=== PATIENT | female | born 1980 ===

== ENCOUNTER 2018-09-26 20:00 | Inpatient (IN) | payer BC ==
[2018-09-27] MEDS ORDERED: Butorphanol Tartrate 1 MG/ML VIAL SLOW IVP PRN (03:36)
[2018-09-27] MEDS ORDERED: NS w/ Oxytocin 10 units 500 ML IV SCH (03:36)
[2018-09-27] MEDS ORDERED: HYDROcodone/Acetaminophen 5/325 mg Tablet PO PRN ×2 (03:36→18:40)
[2018-09-27] MEDS ORDERED: Misoprostol 200 MCG TAB PR PRN (03:36)
[2018-09-27] MEDS ORDERED: Ibuprofen 800 MG TAB PO PRN (03:36)
[2018-09-27] MEDS ORDERED: Lidocaine 1% (PF) 30 ML VIAL SC PRN (03:36)
[2018-09-27] MEDS ORDERED: Promethazine HCl 25 MG/ML VIAL IM PRN ×2 (03:36→08:34)
[2018-09-27] MEDS ORDERED: Zolpidem Tartrate 5 MG TAB PO PRN (03:36)
[2018-09-27] MEDS ORDERED: Diphenoxylate HCl/Atropine Tablet PO PRN (03:36)
[2018-09-27] MEDS ORDERED: Acetaminophen 500 MG TAB PO PRN (03:36)
[2018-09-27] MEDS ORDERED: Methylergonovine 0.2 MG/ML VIAL IM PRN (03:36)
[2018-09-27] MEDS ORDERED: Ondansetron PF 4 MG/2 ML Vial IVP PRN ×3 (03:36→18:40)
[2018-09-27] MEDS ORDERED: Carboprost 250 MCG/ML AMP IM PRN (03:36)
[2018-09-27 03:42] VITALS: BMI 33.7
[2018-09-27] MEDS: Misoprostol 100 MCG TAB VAG SCH ×4 (04:12→18:13)
[2018-09-27] MEDS: Lactated Ringer's 1,000 ML IV SCH ×2 (04:13→15:55)
[2018-09-27 04:16] LABS: Hemoglobin 13.4 g/dL (12.0-16.0); Mean Corpuscular HGB CONC 33.1 g/dL (32.0-36.0); Mean Corpuscular Hemoglobin 26.9 pg (27.0-31.0); Mean Corpuscular Volume 81.4 fL (78.0-98.0); Mean Platelet Volume 10.2 fL (7.4-10.4); Platelet Count 207 thou/uL (130-400); RBC Distribution Width 14.9 % (11.5-14.5); Red Blood Cell (RBC) Count 4.96 mill/uL (4.20-5.40); White Blood Cell (WBC) Count 8.7 thou/uL (4.8-10.8)
[2018-09-27 04:23] LABS: Glucose 72 mg/dL (70-105)
[2018-09-27 04:48] LABS: Hep B Surf Ag Non-Reactive S/CO (NonReactive)
[2018-09-27 05:23] LABS: Syphilis Antibody Nonreactive (Nonreactive); Syphilis Antibody Index 0.03 S/CO (<1.00 Non-Reactive)
[2018-09-27] MEDS ORDERED: Fentanyl 4 mcg/Bup 0.1% Cadd 100 ML ONE ×2 (07:54→14:52)
--- NOTE | 2018-09-27 08:03 | PDOC.LDHP ---
Labor and Delivery H&P Allergies/Adverse Reactions: Allergies Allergy/AdvReac Type Severity Reaction Status Date / Time No Known Allergies Allergy Verified 09/27/18 03:37
[2018-09-27] MEDS ORDERED: Naloxone HCl 0.4 mg/ml Vial IVP PRN ×2 (08:34)
[2018-09-27] MEDS ORDERED: diphenhydrAMINE 50 MG/ML VIAL IVP PRN (08:34)
[2018-09-27] MEDS ORDERED: ePHEDrine/0.9% NaCl/PF SYRINGE 50 mg/10 ml SLOW IVP PRN (08:34)
[2018-09-27] MEDS ORDERED: Eucerin (Mineral Oil/Petrolatum,White) 30 gm Jar TOP PRN (08:34)
[2018-09-27] MEDS ORDERED: Acetaminophen 325 MG TAB PO PRN (08:34)
[2018-09-27] MEDS ORDERED: Lactated Ringer's 500 ML IV PRN (08:34)
[2018-09-27] MEDS ORDERED: Fentanyl 4 mcg/Bupivacaine 0.1% Cassette 100 ML EPIDURAL SCH (08:45)
[2018-09-27] MEDS ORDERED: Communication Order-Pharmacy FS SCH (08:45)
[2018-09-27] MEDS: NS / Oxytocin 40 units/1000ml 1,000 ML IV PRN ×2 (16:36→18:13)
--- NOTE | 2018-09-27 16:42 | PDOC.OPDEL ---
OB Operative/Delivery Note Delivery Dr/Surgeon: Fernanda Assist: n/a Pre-Delivery Diagnosis: medically indicated induction Procedure/Post Delivery Dx: spontaneous vaginal delivery Weeks gestation: 38 Anesthesia: epidural - Findings A Sex: male - 1 min: 9 - 5 min: 9 - Additional Findings/Plan Placenta delivered: spontaneous Repaired Obstetrical Laceration: 3rd degree (repaired end to end with 2-0 vicryl , second degree repaired with 2-0 vicryl in usual fashion, excellent hemostasis , dangling tissue trimmed on right labia, hemostatic with 2-0 vicryl single stitch) Estimated blood loss: 400, qbl pending Compilations/Other Findings: NC x 1 reduced, no dystocia Post delivery plan: routine recovery
[2018-09-27] MEDS ORDERED: Bupivacaine 0.25% HCL 30 ML VIAL ONE (18:00)
[2018-09-27] MEDS ORDERED: Milk Of Magnesia 30 ML UDCUP PO PRN (18:40)
[2018-09-27] MEDS ORDERED: Preparation H Ointment 28 GM TUBE PR PRN (18:40)
[2018-09-27] MEDS ORDERED: NS / Oxytocin 40 units/1000ml 1,000 ML IV SCH (18:40)
[2018-09-27] MEDS ORDERED: Benzocaine/Menthol 20-0.5% 60 ML CAN TOP PRN (18:40)
[2018-09-27] MEDS ORDERED: diphenhydrAMINE 25 MG CAP PO PRN (18:40)
[2018-09-27] MEDS ORDERED: Bisacodyl 10 MG SUPP PR PRN (18:40)
[2018-09-27] MEDS: Docusate Calcium (SURFAK) 240 MG CAP PO SCH (21:52)
[2018-09-27] MEDS: Ibuprofen 800 MG TAB PO SCH (21:55)
[2018-09-28] MEDS: HYDROcodone/Acetaminophen 5/325 mg Tablet PO PRN ×2 (03:35→23:41)
[2018-09-28] MEDS: Ibuprofen 800 MG TAB PO SCH ×3 (05:37→21:36)
[2018-09-28] MEDS ORDERED: Adacel (T-DAP) 0.5 ML VIAL IM ONE (09:00)
[2018-09-28] MEDS: Ferrous Sulfate 325 MG TAB PO SCH ×2 (09:38→16:45)
[2018-09-28] MEDS: Docusate Calcium (SURFAK) 240 MG CAP PO SCH ×2 (09:40→21:35)
[2018-09-28] MEDS: Prenatal Vitamin 1 TAB PO SCH (09:40)
--- NOTE | 2018-09-28 12:28 | PDOC.PP ---
Post Progress Note Post Day #: 1 PO intake tolerated: yes Flatus: yes Ambulation: yes Vital Signs (12 hours) Temp Pulse Resp BP Pulse Ox 09/28/18 11:45 97.9 F 20 112/77 09/28/18 08:50 97 09/28/18 08:05 98 09/28/18 08:02 97.7 F 102 H 20 105/63 98 09/28/18 03:52 97.8 F 110 H 18 117/84 09/28/18 01:12 98.3 F 108 H 18 125/97 H Weight Weight 173 lb - Physical Examination General: NAD Respiratory: non-labored breathing Abdominal: no distention, appropriately TTP Fundus firm & at: umb Skin: no rash Neurological: no gross focal deficits Psychiatric: normal affect Result Diagrams: 09/27/18 03:44 09/27/18 03:44 Additional Labs: Post Labs Blood Type O POSITIVE 09/27/18 03:44 Hep Bs Antigen Non-Reactive S/CO (NonReactive) 09/27/18 03:44 - Assessment/Plan PPD1 s/p TSVD VSSAF Doing well, lochia appropriate Rh pos RImm Cont PP care, home tomorrow.
[2018-09-29] MEDS: Ibuprofen 800 MG TAB PO SCH ×2 (05:36→13:50)
--- NOTE | 2018-09-29 06:07 | PDOC.PP ---
Post Progress Note Post Day #: 2, doing well on PPD2 Subjective: S/P with 3rd degree lac...doing well. Aware of third degree repair. No issues noted. PO intake tolerated: yes Flatus: yes Ambulation: yes Vital Signs (12 hours) Temp Pulse Resp BP Pulse Ox 09/28/18 23:41 98.0 F 95 18 117/70 09/28/18 21:15 98.4 F 98 20 119/75 97 Weight Weight 173 lb Vitals for last 24 hours noted - Physical Examination General: NAD Cardiovascular: no m/r/g Respiratory: clear to auscultation bilaterally Abdominal: + bowel sounds, lochia, no distention, appropriately TTP Extremities: negative homans (B) Skin: no rash Neurological: no gross focal deficits Psychiatric: A&Ox3, normal affect Result Diagrams: 09/27/18 03:44 09/27/18 03:44 Additional Labs: Post Labs Blood Type O POSITIVE 09/27/18 03:44 Hep Bs Antigen Non-Reactive S/CO (NonReactive) 09/27/18 03:44 (1) Third degree laceration of perineum during delivery, Code(s): O70.20 - THIRD DEGREE PERINEAL LACERATION DURING DELIVERY, UNSP Status: Acute (2) Vaginal delivery Code(s): O80 - ENCOUNTER FOR FULL-TERM UNCOMPLICATED DELIVERY Status: Acute - Assessment/Plan PPD2 Doing well. No issues identified. Due to 3rd degree, I will give her colase 100mg po BID x 1 wek, motrin for pain. Follow up within 2-3 weeks recommended by me. DC home today Discharge Summary completed in physical chart
[2018-09-29] MEDS: Ferrous Sulfate 325 MG TAB PO SCH ×2 (08:28→16:17)
[2018-09-29] MEDS: Docusate Calcium (SURFAK) 240 MG CAP PO SCH (09:19)
[2018-09-29] MEDS: Prenatal Vitamin 1 TAB PO SCH (09:19)
[2018-09-29 09:30] VITALS: BP 122/81; TEMP 97.9
== END 2018-09-29 18:42 | disposition home or self-care (01) | DRG 768 ==
LOC: L&D 09-27 03:15 → 3SW 09-27 19:10
PROVIDERS: ADMIT Student in an Organized Health Care Education/Training Program; ATTEND Student in an Organized Health Care Education/Training Program
PROC: 0DQR0ZZ Repair Anal Sphincter, Open Approach (ICD-10-PCS; principal; 2018-09-27)
PROC: 10E0XZZ Delivery of Products of Conception, External Approach (ICD-10-PCS; 2018-09-27)
PROC: 4A1HXCZ Monitoring of Products of Conception, Cardiac Rate, External Approach (ICD-10-PCS; 2018-09-27)
PROC: 4A1HXFZ Monitoring of Products of Conception, Cardiac Rhythm, External Approach (ICD-10-PCS; 2018-09-27)
PROC: 10907ZC Drainage of Amniotic Fluid, Therapeutic from Products of Conception, Via Natural or Artificial Opening (ICD-10-PCS; 2018-09-27)
DX: O24.425 Gestational diabetes mellitus in childbirth, controlled by oral hypoglycemic drugs (principal); Z37.0 Single live birth; O70.20 Third degree perineal laceration during delivery, unspecified; O69.81X0 Labor and delivery complicated by cord around neck, without compression, not applicable or unspecified; Z3A.38 38 weeks gestation of pregnancy; O76 Abnormality in fetal heart rate and rhythm complicating labor and delivery
CPT/HCPCS: 36416; 51701; 51702; 82947; 85027; 86780; 86850; 86900; 86901; 87340; J2001; S0020